=== PATIENT | male | born 1955 ===

== ENCOUNTER → 2020-08-02 | Outpatient (CLI) | payer MEDICARE, MEDICAID | LOC: COL.RAD 08:22 | DX: M47.816 Spondylosis without myelopathy or radiculopathy, lumbar region (principal); M48.061 Spinal stenosis, lumbar region without neurogenic claudication | CPT/HCPCS: A9585 ==

== ENCOUNTER 2023-03-28 11:15 | Outpatient (RCR) | payer MEDICARE, MEDICAID | END 2023-04-12 | disposition home or self-care (01) | LOC: WSPT | DX: M48.062 Spinal stenosis, lumbar region with neurogenic claudication (principal); M47.816 Spondylosis without myelopathy or radiculopathy, lumbar region; Z98.1 Arthrodesis status ==